=== PATIENT | female | born 1985 | race Caucasian/White ===

== ENCOUNTER 2016-02-20 23:09 | Inpatient (IN) | payer OTHER ==
[2016-02-20] MEDS ORDERED: RINGERS SOLUTION,LACTATED 1,000 ML IV PRN (23:43)
[2016-02-20] MEDS ORDERED: OXYTOCIN/DEXTROSE 5%-WATER 30 UNITS/500 ML BAG IV ONE (23:43)
[2016-02-20] MEDS ORDERED: RINGERS SOLUTION,LACTATED 1,000 ML IV ONE (23:43)
[2016-02-20] MEDS ORDERED: LIDOCAINE HCL 50 ML VIAL PERI PRN (23:43)
[2016-02-20] MEDS ORDERED: DEXTROSE 5%-LACTATED RINGERS 1,000 ML IV PRN (23:43)
[2016-02-21] MEDS ORDERED: BUPIVACAINE HCL/0.9 % NACL/PF 250 ML EP PRN (00:23)
--- NOTE | 2016-02-21 00:27 | OR ---
Anesthesia Pre Procedure Eval Date of Service: 02/21/16 Pre Procedure Evaluation: Anesthesia Pre Procedure Evaluation DATE: 02/21/2016 TIME: 12:25 AM INDICATIONS: Active labor, labor pain PAST MEDICAL HISTORY: Multipara patient in active labor requesting labor analgesia. She is at an 8 cm dilatation and membranes are intact. EXAM: Heart regular; lungs clear ASSESSMENT OF MEDICAL STATUS: Appropriate candidate for labor analgesia PLANNED PROCEDURE: Combination spinal epidural for labor analgesia Home Medications: HOME MEDICATIONS Folic Acid 1 mg PO DAILY 02/20/16 [Last Taken 02/20/16] Vit#96/Ferrous Fum/FA [ S] 1 tab PO DAILY 02/20/16 [Last Taken 02/20/16]
[2016-02-21] MEDS ORDERED: fentaNYL CITRATE/PF 50 MCG/ML AMPUL IT SCH (00:30)
--- NOTE | 2016-02-21 00:48 | OR ---
Anesthesia Procedure Note - Anesthesia Procedure Note Date of Service: 02/21/16 Narrative: 02/21/16 00:27 ANESTHESIA PROCEDURE NOTE Date of Procedure: 02/21/2016 Time of procedure: 25. Performed by: SHANNON Marcial CRNA, MSN Surface Plate Inspector: Lina Last RN. Preprocedure diagnosis: Active labor, labor pain. Post procedure diagnosis: Same. Procedure: Labor Epidural Placement L3 4. Indications: Labor pain. Findings: See below. Details of the procedure: The patient was placed on the side of the bed in sitting position. The patient was prepped with DuraPrep and draped in a sterile fashion. Lidocaine 1% was infiltrated to the skin and subcutaneous tissues at the level of the L3 4 interspace. The epidural space was identified using a 18-gauge Tuohy needle with [id number] technique. Fentanyl 20 g was given intrathecally the intrathecal needle was then removed and the epidural catheter was threaded approximately 4 cm, the epidural needle was then removed, and after careful aspiration 3 mL of 1.5% lidocaine with 1-200,000 epinephrine was injected without change in maternal heart rate or sensorium. The catheter was then taped in place. EBL: Minimal. Fluids: N/A. Specimen: N/A. Post procedure condition: The patient tolerated the procedure well with good relief. No complications were noted. Thank you for this consultation. Francois Heart CRNA, SHANNON, MSN
--- NOTE | 2016-02-21 01:36 | OR ---
History for MU Definition: * The number of deliveries resulting in a live the patient experienced prior to current hospitalization * The previous delivery of live twins or any live multiple gestation is considered one live event. *If primagravida or nulliparous is documented select zero for the number of previous live births. Spontaneous Vaginal Delivery Viable male with APGARS of 9 at 1 minute and 9 at 5 minutes. He delivered at 0144. Presentation was presentation was DANIEL. No nuchal cord was noted. The anterior shoulder delivered without difficulty a loop of umbilical cord was noted to be around the shoulders and this was reduced prior to delivering the posterior shoulder and the remainder of the baby. Was placed on the maternal abdomen and dried and stimulated. The cord was clamped and cut after approximately 90 seconds. Weight: 7 pounds 11.3 ounces or 3497 g Placenta was delivered spontaneously and intact. No lacerations were noted. Estimated blood loss: 100 ml Mother and baby tolerated delivery well. Live Events: 1
[2016-02-21] MEDS ORDERED: BENZOCAINE/MENTHOL 81 SPRAY CAN TP PRN (02:03)
[2016-02-21] MEDS ORDERED: oxyCODONE HCL/ACETAMINOPHEN 1 TAB TABLET PO PRN ×2 (02:03)
[2016-02-21] MEDS ORDERED: SENNOSIDES 8.6 MG TABLET PO PRN (02:03)
[2016-02-21] MEDS ORDERED: GLYCERIN/WITCH HAZEL LEAF 40 APPL BOX TP PRN (02:03)
[2016-02-21] MEDS ORDERED: BISACODYL 10 MG SUPP.RECT RC PRN (02:03)
[2016-02-21] MEDS ORDERED: OXYTOCIN/DEXTROSE 5%-WATER 30 UNITS/500 ML BAG IV ONE (02:03)
[2016-02-21] MEDS ORDERED: IBUPROFEN 800 MG TABLET PO PRN (02:03)
[2016-02-21] MEDS: DOCUSATE SODIUM 100 MG CAPSULE PO SCH ×2 (09:00→19:59)
--- NOTE | 2016-02-21 11:24 | PN ---
Progess Note - Interim Narrative: 02/21/16 11:23 progress note Subjective: The patient is doing well. She is ambulating, voiding, tolerating by mouth. She has minimal pain and moderate lochia. Objective: General: No acute distress Abdomen: Soft, nontender, fundus is firm just below the umbilicus Extremities: minimal edema, nontender to palpation Assessment and plan: day 0 Feeding: Breast Pain: Controlled with by mouth medication Routine care.
[2016-02-22 08:35] VITALS: BP 104/60
--- NOTE | 2016-02-22 10:14 | PN ---
Progess Note - Interim Narrative: 02/22/16 10:13 progress note Subjective: The patient is doing well. She is ambulating, voiding, tolerating by mouth. She has minimal pain and moderate lochia. Objective: General: No acute distress Abdomen: Soft, nontender, fundus is firm just below the umbilicus Extremities: minimal edema, nontender to palpation Assessment and plan: day 1 Feeding: Breast Pain: Controlled with by mouth medication control: progesterone only mini pill Routine care.
[2016-02-22] MEDS: DOCUSATE SODIUM 100 MG CAPSULE PO SCH (11:36)
== END 2016-02-22 13:45 | disposition home or self-care (01) | DRG 775 ==
LOC: OB 23:09
PROVIDERS: ADMIT Obstetrics & Gynecology Gynecologic Oncology; ATTEND Obstetrics & Gynecology Gynecologic Oncology
PROC: 10E0XZZ Delivery of Products of Conception, External Approach (ICD-10-PCS; principal; 2016-02-21)
PROC: 4A1HXCZ Monitoring of Products of Conception, Cardiac Rate, External Approach (ICD-10-PCS; 2016-02-21)
PROC: 3E0S3CZ (ICD-10-PCS; 2016-02-21)
DX: O80 Encounter for full-term uncomplicated delivery (principal); Z3A.39 39 weeks gestation of pregnancy; Z37.0 Single live birth